=== PATIENT | male | born 1980 | race Caucasian/White ===

== ENCOUNTER 2025-02-28 18:45 | Emergency (ER) | payer OTHER, SELFPAY ==
[2025-02-28 18:58] VITALS: BP 142/77; PULSE 80; RESP 17; TEMP 36.6; O2SAT 99; BMI 26.4
[2025-02-28 21:10] LABS: Add Manual Diff / Slide Review NO; Hematocrit 40.9 % (41-53); Hemoglobin 14.2 g/dL (13.5-17.5); Lymphocytes Absolute Auto 2500 /uL (1100-4500); Mean Corpuscular HGB Conc 34.6 % (30-36); Mean Corpuscular Hemoglobin 32.8 PG (26-34); Mean Corpuscular Volume 94.6 fL (80-100); Platelet Count 286 X10^3/uL (150-400)
[2025-02-28 21:25] LABS: Alanine Aminotransferase 31 IU/L (<50); Albumin 4.9 g/dL (3.5-5.0); Albumin Globulin Ratio 1.3 (1.0-2.8); Alkaline Phosphatase 89 U/L (38-126); Blood Urea Nitrogen 19 mg/dL (9-20); Calcium 9.0 mg/dL (8.4-10.2); Carbon Dioxide 26 mmol/L (22-32); Chloride 102 mmol/L (98-107); Estimated Glomerular Filt Rate > 60 mL/min (>60); Globulin 3.9 g/dL (1.7-4.1); Glucose 86 mg/dL (70-99); HEMOLYSIS < 15 (0-50); Lactate (Lactic Acid) 1.3 mmol/L (0.7-2.1); Potassium 3.5 mmol/L (3.4-5.1); Sodium 140 mmol/L (137-145); Total Protein 8.8 g/dL (6.3-8.2)
[2025-02-28 21:39] LABS: Procalcitonin 0.064 ng/mL (<0.5)
--- NOTE | 2025-03-01 00:18 | DI.RAD.S_ITS ---
PROCEDURE: XR HAND RT MIN 3V INDICATIONS: thumb swelling, thumb wound, worsening infection TECHNIQUE: 3 views of the hand(s) acquired. COMPARISON: None. FINDINGS: Bones: No fractures or dislocations. Carpal bones are normally aligned. No suspicious bony lesions. Soft tissues: No suspicious soft tissue calcifications. 1st digit soft tissue edema. No soft tissue air. IMPRESSION: 1st digit soft tissue prominence suspected to be related to infection or inflammation. No underlying osseous abnormality. Dictated by: Dorita Contreras M.D. on 03/01/2025 at 1:07 Approved by: Dorita Contreras M.D. on 03/01/2025 at 1:07
--- NOTE | 2025-03-01 00:21 | ED_ITS ---
HPI - Wound/Laceration General Chief Complaint: Wound/Laceration Stated Complaint: infection in right thumb, spreading Time Seen by Provider: 02/28/25 20:01 Source: patient Mode of arrival: Ambulatory History of Present Illness HPI narrative: 44-year-old gentleman with no significant past medical history presents with right hand specific early right thumb injury after small cut to right thumb with pain swelling that started over the weekend crabbing and then eating crab subsequently was seen a few days ago started on Augmentin and then on re- evaluation today at the walk in clinic noticed that there was streaking going up the arm told to come to ER to be evaluated. He denies any foreign body sensation, bleeding discharge, fever, chills, body aches. Other than what is stated 14 point review of system is negative. Related Data Home Medications ?Medication ?Instructions ?Recorded ?Confirmed adalimumab 40 mg/0.8 mL 40 mg SUBCUT Q2W 02/28/25 subcutaneous pen kit (Humira Pen) amoxicillin 500 mg-potassium 1 tab PO DAILY 02/28/25 0 02/28/25 clavulanate 125 mg tablet (Augmentin) Allergies Allergy/AdvReac Type Severity Reaction Status Date / Time codeine AdvReac Nausea Verified 02/28/25 18:59 Review of Systems Review of Systems ROS Unobtainable: All systems reviewed & are unremarkable except as noted in HPI and below Patient History Social History Smoking Status: Never smoker Smoking Status: Never smoker Exam Narrative Exam Narrative: GENERAL: [44] year old patient appears stated age. Well-developed patient, in mild distress. HEAD: Atraumatic. Normocephalic. EYES: Pupils equal round and reactive. Extraocular motions intact. No scleral icterus. No injection or drainage. NECK: Trachea midline. Non tender CARDIOVASCULAR: Regular rate and rhythm without murmurs, gallops, or rubs. RESPIRATORY: Clear to auscultation. Breath sounds equal bilaterally. No wheezes, rales, or rhonchi. GASTROINTESTINAL: Abdomen soft, non-tender, nondistended. EXTREMITIES: No edema or joint tenderness. BACK: Nontender without deformity or crepitance. No flank tenderness. NEURO: AOx3. SKIN: Right hand specifically thumb D IP joint volar surface redness, warmth, swelling, tenderness to palpation but no fluctuance with streaking going up palmar surface to mid forarm with motor sensory intact +2 radial pulse cap refill less than 2 seconds with full range of motion of right hand including all digits and thumb as well as elbow and wrist and shoulder. Initial Vital Signs Initial Vital Signs: Vital Signs Temperature 98 F 02/28/25 18:58 Pulse Rate 80 02/28/25 18:58 Respiratory Rate 17 02/28/25 18:58 Blood Pressure 142/77 H 02/28/25 18:58 Pulse Oximetry 99 02/28/25 18:58 Oxygen Delivery Method Room Air 02/28/25 18:58 Course Orders Ordered: ED Orders 02/28/25 20:35 Blood Culture Stat CBC Auto Diff [Complete Blood Count AUTO DIFF] Stat CMP [Comprehensive Metabolic Panel] Stat CRP [C-Reactive Protein Quant] Stat Erythrocyte Sedimentation Rate Stat Lactate (Lactic Acid) Stat Procalcitonin Stat 03/01/25 00:18 XR hand RT min 3V Stat Lactated Ringer's (Lactated Ringers) 1,000 mls @ 1,000 mls/hr IV BOLUS ONE Stop: 03/01/25 01:17 Discontinued Medications Ceftriaxone Sodium 2,000 mg/ (Sodium Chloride) 100 mls @ 200 mls/hr IV NOW ONE Stop: 03/01/25 00:19 Last Infusion: 03/01/25 01:08 Dose: Infused Documented By: Admin: 03/01/25 00:28 Dose: 200 mls/hr Documented By: PARMINDER Ketorolac Tromethamine (Ketorolac 30 Mg/Ml Vial) 15 mg IV NOW ONE Stop: 03/01/25 00:22 Last Admin: 03/01/25 00:27 Dose: 15 mg Documented By: PARMINDER Vital Signs Vital signs: Vital Signs - 8 hr 02/28/25 18:58 Temperature 98 F Pulse Rate 80 Respiratory Rate 17 Blood Pressure 142/77 H Pulse Oximetry 99 Oxygen Delivery Method Room Air MDM - Wound/Laceration Lab Data 02/28/25 20:35 02/28/25 20:35 Labs: Lab Results 02/28/25 Range/Units 20:35 WBC 9.0 (4.5-11.0) X10^3/uL RBC 4.32 L (4.5-5.9) X10^6/uL Hgb 14.2 (13.5-17.5) g/dL Hct 40.9 L (41-53) % MCV 94.6 (80-100) fL MCH 32.8 (26-34) PG MCHC 34.6 (30-36) % RDW 13.0 (11.6-14.8) % Plt Count 286 (150-400) X10^3/uL Neut % (Auto) 64.8 (50-75) % Lymph % (Auto) 27.8 (25-40) % [place] % (Auto) 5.7 (3-14) % Eos % (Auto) 1.2 L (2-4) % Baso % (Auto) 0.5 (0-2) % Neut # (Auto) 5800 (9708-9089) /uL Lymph # (Auto) 2500 (9263-6605) /uL [place] # (Auto) 500 (0-900) /uL Eos # (Auto) 100 (0-450) /uL Baso # (Auto) 0 (0-100) /uL ESR 28 H (0-15) MM/HR Sodium 140 (137-145) mmol/L Potassium 3.5 (3.4-5.1) mmol/L Chloride 102 (98-107) mmol/L Carbon Dioxide 26 (22-32) mmol/L BUN 19 (9-20) mg/dL Creatinine 0.89 (0.66-1.25) mg/dL Estimated GFR > 60 (>60) mL/min BUN/Creatinine Ratio 21.3 (6-22) Glucose 86 (70-99) mg/dL Lactate 1.3 (0.7-2.1) mmol/L Calcium 9.0 (8.4-10.2) mg/dL Total Bilirubin 0.8 (0.2-1.3) mg/dL AST 30 (17-59) IU/L ALT 31 (<50) IU/L Alkaline Phosphatase 89 (38-126) U/L C-Reactive Protein 7.5 H (<1.0) mg/dL Total Protein 8.8 H (6.3-8.2) g/dL Albumin 4.9 (3.5-5.0) g/dL Globulin 3.9 (1.7-4.1) g/dL Albumin/Globulin Ratio 1.3 (1.0-2.8) Procalcitonin 0.064 (<0.5) ng/mL Imaging Data Extremity x-ray #1: Radiologist's Impression: [address] [address] XRay Report Signed Patient: Boom Luong MR#: [id number] : 1980 Acct:[id number] Age/Sex: 44 / M Date of Service: 03/01/25 Loc: ED Accession Number: [id number] Procedure: XR hand RT min 3V Ordering Provider: Khanh Fine D.O. PROCEDURE: XR HAND RT MIN 3V INDICATIONS: thumb swelling, thumb wound, worsening infection TECHNIQUE: 3 views of the hand(s) acquired. COMPARISON: None. FINDINGS: Bones: No fractures or dislocations. Carpal bones are normally aligned. No suspicious bony lesions. Soft tissues: No suspicious soft tissue calcifications. 1st digit soft tissue edema. No soft tissue air. IMPRESSION: 1st digit soft tissue prominence suspected to be related to infection or inflammation. No underlying osseous abnormality. MDM Narrative Medical decision making narrative: All lab work, vital signs, nurse triage note, medication list, previous ER visits, and all imaging studies reviewed. X-ray shows 1st digit soft tissue prominence suspected to be related to infection or inflammation no underlying osseous abnormality. Patient given fluids Toradol [place] and Rocephin 2 g IV. Differential diagnosis includes cellulitis, abscess, paronychia, felon, foreign body, mrsa. Patient was offered admission and declined at this time but strict precautions given for return and he is agreeable. Discharge Plan Departure Patient Disposition: Home Clinical Impression: Cellulitis Qualifiers: Site of cellulitis: extremity Site of cellulitis of extremity: finger L aterality: right Qualified Code(s): L03.011 - Cellulitis of right finger Instructions: DI for Cellulitis -- Adult Activity Restrictions/Additional Instructions: Return with new or worsening symptoms. Take antibiotics as prescribed. Please return if more red swollen painful fever or chills or difficulty moving finger or hand wrist elbow or streaking further up the arm continues. Prescriptions: No Action amoxicillin-pot clavulanate [Augmentin] 500-125 mg tablet 1 tab PO DAILY Humira Pen 40 mg/0.8 mL pen injector kit 40 mg SUBCUT Q2W Rx Instructions: start on day 29 of therapy Stand Alone Forms: Patient Portal/API
[2025-03-01] MEDS: KETOROLAC 30 MG/ML VIAL 15 MG IV (00:27)
[2025-03-01] MEDS: cefTRIAXone 2,000 MG in SODIUM CHLORIDE 0.9% 100 ML 200 MG IV (00:28)
[2025-03-01 01:05] VITALS: PULSE 54; O2SAT 98
[2025-03-01] MEDS: LACTATED RINGERS 1,000 ML 1000 ML IV (01:25)
[2025-03-01 01:30] VITALS: BP 124/71; PULSE 62; O2SAT 99
[2025-03-01 02:00] VITALS: BP 131/79; PULSE 50; RESP 14; O2SAT 98
[2025-03-01 02:30] VITALS: BP 139/80; PULSE 50; RESP 16; O2SAT 98
== END 2025-03-01 02:42 | disposition home or self-care (01) ==
PROVIDERS: Emergency Provider Family Medicine
DX: L03.011 Cellulitis of right finger (principal)
CPT/HCPCS: 36415; 73130; 80053; 83605; 84145; 85025; 85651; 86140; 87040; 96361; 96365; 96375; 99284; J0696; J1885